=== PATIENT | male | born 1975 | race Caucasian/White ===

== ENCOUNTER → 2017-04-08 | Outpatient (CLI) | payer BC ==
[~2017-04-08] MED LIST: AMBIEN 10MG10 MG PO; CYMBALTA 60MG60 MG PO; PERCOCET 325 MG1 TA2 PO
== END ==
LOC: MHCPAIN 08:27
DX: G89.29 Other chronic pain (principal); M47.817 Spondylosis without myelopathy or radiculopathy, lumbosacral region; M53.3 Sacrococcygeal disorders, not elsewhere classified; G62.9 Polyneuropathy, unspecified
CPT/HCPCS: G0463

== ENCOUNTER → 2021-07-05 | Outpatient (CLI) | payer BC ==
[2021-07-05] VITALS (12 sets, daily range): BP systolic 113–131; BP diastolic 72–86; PULSE 46–57; TEMP 97.7
[~2021-07-05] VITALS: Ht 190.5 cm; Wt 109.9 kg
[~2021-07-05] MED LIST changes: +ALBUTEROL SULFAT3 M3 IH; +ATROVENT I0.2 MG/1 M IH
--- NOTE | 2021-07-05 09:50 | NUR ---
FENTANYL 50 MCG GIVEN
--- NOTE | 2021-07-05 10:14 | NUR ---
FENTANYL 25 MCG GIVEN
--- NOTE | 2021-07-05 11:29 | NUR ---
PROCEDURE CANCELLED BY DR CARRERA. PT AND WERE TAKEN TO ELEVATOR AND LEFT.
== END ==
LOC: COL.RAD 08:43
DX: R91.8 Other nonspecific abnormal finding of lung field (principal)
CPT/HCPCS: 32106